=== PATIENT | female | born 1955 | race Caucasian/White ===

== ENCOUNTER → 2016-10-13 | Outpatient (CLI) | payer BC, OTHER ==
[~2016-10-13] MED LIST: CYMB60CA3 PO; DIOV160T8 PO; SIMV20TA2 PO
--- NOTE | 2016-10-13 19:20 | REPMRS ---
Patient History The patient states she had a clinical breast exam in September 2016.Family history of breast cancer in maternal grandmother at age 50 or over. Benign excisional biopsy of the right breast, 2004. Took hormonal contraceptives for 37 years. Digital Mammo Screening Bilat: October 13, 2016 - Exam #: [id number] Bilateral CC and MLO view(s) were taken. Technologist: Sravanthi Rayo, Technologist Prior study comparison: September 24, 2015, digital woman screen mammo, performed at [facility]. September 10, 2014, digital woman screen mammo, performed at [facility]. September 07, 2013, bilateral bilat screen digital mammo, performed at [facility] ([facility]). FINDINGS: There are scattered fibroglandular densities. There has been no change in the appearance of the mammogram from the prior studies. There is a mild amount of scattered fibroglandular density which is fairly symmetric. There is no interval development of dominant mass, architectural distortion, or clustered microcalcification suggestive of malignancy. ASSESSMENT: BI-RADS/ACR category 1 mammogram. Negative. Recommendation Routine screening mammogram in 1 year (for women over age 40). This mammogram was interpreted with the aid of an FDA-approved computer-aided dectection system. Electronically Signed By: Maxx Green MD 10/13/16 [id number]
== END ==
LOC: M RAD 16:14
PROVIDERS: ATTEND Nurse Practitioner Adult Health
DX: Z12.31 Encounter for screening mammogram for malignant neoplasm of breast (principal); Z80.3 Family history of malignant neoplasm of breast; Z92.0 Personal history of contraception

== ENCOUNTER → 2019-11-07 | Outpatient (CLI) | payer BC ==
[~2019-11-07] MED LIST changes: -DIOV160T8 PO; +DIOV160T9 PO; -SIMV20TA2 PO; +SIMV20TA22 PO
--- NOTE | 2019-11-07 09:00 | REPMRS ---
Patient History The patient states she had a clinical breast exam in September 2019. Family history of breast cancer at age 50 or over in maternal grandmother. Benign excisional biopsy of the right breast, 2004. Took hormonal contraceptives for 37 years. Digital Woman Screen Mammo: November 07, 2019 - Exam #: [id number] Bilateral CC and MLO view(s) were taken. Technologist: Karolyn Rogers, Technologist Prior study comparison: October 18, 2018, bilateral digital woman screen mammo performed at [facility]. October 14, 2017, digital woman screen mammo performed at [facility]. October 13, 2016, bilateral digital mammo screening bilat, performed at [facility]. FINDINGS: The breast tissue is almost entirely fat. The Volpara volumetric breast density category is: A. There has been no change in the appearance of the mammogram from the prior studies. There is no interval development of dominant mass, architectural distortion, or grouped microcalcification typical of malignancy. 3-D tomosynthesis shows no additional findings. Assessment: BI-RADS/ACR category 1 mammogram. Negative Mammogram. Recommendation Routine screening mammogram of both breasts in 1 year (for women over age 40). This patient's Lifetime Breast Cancer RIsk is estimated at 13.5 %. This mammogram was interpreted with the aid of an FDA-approved computer-aided dectection system. Electronically Signed By: Maxx Green MD 11/07/19 0900
== END ==
LOC: M WHC 07:34
PROVIDERS: ATTEND Nurse Practitioner Adult Health
DX: Z12.31 Encounter for screening mammogram for malignant neoplasm of breast (principal)

== ENCOUNTER → 2022-07-14 | Outpatient (CLI) | payer BC, OTHER ==
[~2022-07-14] MED LIST changes: -CYMB60CA3 PO; +CYMB60CA4 PO; +OLME1TAB53 PO
== END ==
LOC: M LABSMTC 08:35
PROVIDERS: ATTEND Anesthesiology
DX: Z01.818 Encounter for other preprocedural examination (principal); Z11.52 Encounter for screening for COVID-19

== ENCOUNTER → 2022-07-16 | Day surgery (SDC) | payer BC, OTHER ==
[~2022-07-16] VITALS: Ht 157.5 cm; Wt 1007.0 kg
[~2022-07-16] MED LIST changes: +LIDOCAINE 2% 100MG/5ML SDV (FOR ANES.) As Ordered ONE; +NS 1,000 ML IV ONE; +propofoL 200 MG/20 ML VIAL As Ordered ONE
[2022-07-16 09:48] VITALS: BP 111/52
== END | disposition home or self-care (01) ==
LOC: M OPP 08:10
PROVIDERS: ATTEND Surgery
DX: Z12.11 Encounter for screening for malignant neoplasm of colon (principal); K57.30 Diverticulosis of large intestine without perforation or abscess without bleeding; G47.33 Obstructive sleep apnea (adult) (pediatric); F32.9 Major depressive disorder, single episode, unspecified; F41.9 Anxiety disorder, unspecified; I10 Essential (primary) hypertension; E78.00 Pure hypercholesterolemia, unspecified; Z79.02 Long term (current) use of antithrombotics/antiplatelets; Z79.899 Other long term (current) drug therapy